=== PATIENT | female | born 1980 | race Caucasian/White ===

== ENCOUNTER 2019-03-02 17:02 | Inpatient (IN) | payer OTHER ==
[~2019-03-02] VITALS: Ht 165.1 cm; Wt 77.1 kg
[2019-03-02] MEDS ORDERED: LACTATED RINGERS 1,000 ML IV SCH (18:36)
[2019-03-02] MEDS ORDERED: NALBUPHINE 10 MG/ML AMP IVP PRN (18:40)
[2019-03-02] MEDS ORDERED: CARBOPROST 250 MCG/ML AMP IM PRN (18:40)
[2019-03-02] MEDS ORDERED: MISOPROSTOL 200 MCG TAB VG SCH (19:00)
[2019-03-02 19:26] LABS: BASOPHILS % (AUTO) 0.4 % (0.0-2.0); EOSINOPHILS # (AUTO) 0.1 K/uL (0-0.4); EOSINOPHILS % (AUTO) 0.8 % (0.0-4.0); HEMATOCRIT 42.3 % (36-48); HEMOGLOBIN 14.3 g/dL (12.0-16.0); LYMPHOCYTES # (AUTO) 2.5 K/uL (2.5-16.5); LYMPHOCYTES % (AUTO) 22.4 % (20.5-51.1); MEAN CORPUSCULAR HEMOGLOBIN 33 pg (27-31); MEAN CORPUSCULAR HGB CONC 34 g/dL (33-37); MEAN CORPUSCULAR VOLUME 97.8 fL (80-94); MONOCYTES # (AUTO) 0.9 K/uL (0.8-1.0); MONOCYTES % (AUTO) 7.7 % (1.7-9.3); NEUTROPHILS # (AUTO) 7.7 K/uL (1.8-7.7); NEUTROPHILS % (AUTO) 68.7 % (42.2-75.2); PLATELET COUNT (AUTO) 184 K/uL (140-450); RED BLOOD CELL COUNT(AUTO) 4.33 MIL/uL (4.20-5.40); RED CELL DISTRIBUTION WIDTH 14.4 % (11.6-13.7); WHITE BLOOD COUNT (AUTO) 11.3 K/uL (4.8-10.8)
[2019-03-02 19:54] LABS: ALBUMIN 2.8 g/dL (3.4-5.0); ANION GAP 16.2 (8-16); CARBON DIOXIDE 22.5 mmol/L (21-32); CREATININE 0.6 mg/dL (0.6-1.3); POTASSIUM 3.7 mmol/L (3.5-5.1); TOTAL BILIRUBIN 0.4 mg/dL (0.0-1.0)
[2019-03-02 20:14] LABS: APPEARANCE,URINE CLEAR (CLEAR); BILIRUBIN,URINE NEGATIVE (NEGATIVE); BLOOD, URINE NEGATIVE (NEGATIVE); COLOR,URINE YELLOW (YELLOW); LEUKOCYTE ESTERASE ,URINE 2+ (NEGATIVE); NITRITE, URINE NEGATIVE (NEGATIVE); UGLUCOSE NEGATIVE (NEGATIVE)
[2019-03-02] MEDS ORDERED: MISOPROSTOL 25 MCG TAB ONE (20:25)
[2019-03-02 21:07] LABS: RBC,URINE NONE SEEN /HPF (0-5)
[2019-03-03] MEDS ORDERED: NALBUPHINE 10 MG/ML AMP ONE (00:16)
[2019-03-03] MEDS ORDERED: HYDROcodone/APAP 5/325 MG 1 TAB TAB PO PRN (01:35)
[2019-03-03] MEDS ORDERED: OXYTOCIN 10 UNITS/ML VIAL IM PRN (01:35)
[2019-03-03] MEDS ORDERED: METHYLERGONOVINE 0.2 MG/ML AMP IM PRN (01:35)
[2019-03-03] MEDS ORDERED: SODIUM PHOSPHATE 118 ML ENEM RC PRN (01:35)
[2019-03-03] MEDS ORDERED: MEASLES, MUMPS, AND RUBELLA 1 VIAL SQVAC PRN (01:35)
[2019-03-03] MEDS ORDERED: BENZOCAINE/MENTHOL 20%-0.5% 60 GM CAN TP PRN (01:35)
[2019-03-03] MEDS ORDERED: METHYLERGONOVINE 0.2 MG TAB PO PRN (01:35)
[2019-03-03] MEDS ORDERED: TEMAZEPAM 15 MG CAP PO PRN (01:35)
[2019-03-03] MEDS ORDERED: BISACODYL 10 MG SUPP RC PRN (01:35)
[2019-03-03] MEDS: CALCIUM POLYCARBOPHIL 625 MG TAB PO SCH ×2 (09:37→21:00)
[2019-03-03] MEDS ORDERED: DOCUSATE SOD/SENNA 50/8.6 MG 1 TAB PO SCH (21:00)
[2019-03-03] MEDS ORDERED: BISACODYL 5 MG TABEC PO SCH (21:00)
[2019-03-04] MEDS ORDERED: INFLUENZA VACCINE QUAD 0.5 ML SYR IMVAC PRN (06:00)
[2019-03-04 08:55] LABS: HEMATOCRIT 41.4 % (36-48); HEMOGLOBIN 13.6 g/dL (12.0-16.0)
[2019-03-04] MEDS ORDERED: DOCUSATE SOD/SENNA 50/8.6 MG 1 TAB PO SCH (21:00)
== END 2019-03-05 15:04 | disposition home or self-care (01) | DRG 560 ==
LOC: MLD 17:02 → MFCC 03-03 04:28
PROVIDERS: ADMIT Obstetrics & Gynecology; ATTEND Obstetrics & Gynecology
PROC: 10E0XZZ Delivery of Products of Conception, External Approach (ICD-10-PCS; principal; 2019-03-03)
PROC: 10907ZC Drainage of Amniotic Fluid, Therapeutic from Products of Conception, Via Natural or Artificial Opening (ICD-10-PCS; 2019-03-03)
PROC: 3E033VJ Introduction of Other Hormone into Peripheral Vein, Percutaneous Approach (ICD-10-PCS; 2019-03-03)
PROC: 3E0P7VZ Introduction of Hormone into Female Reproductive, Via Natural or Artificial Opening (ICD-10-PCS; 2019-03-03)
PROC: 3E0234Z Introduction of Serum, Toxoid and Vaccine into Muscle, Percutaneous Approach (ICD-10-PCS; 2019-03-03)
PROC: 3E0134Z Introduction of Serum, Toxoid and Vaccine into Subcutaneous Tissue, Percutaneous Approach (ICD-10-PCS; 2019-03-03)
DX: O48.0 Post-term pregnancy (principal); O62.3 Precipitate labor; Z3A.40 40 weeks gestation of pregnancy; Z37.0 Single live birth; Z23 Encounter for immunization
CPT/HCPCS: 36415; 59200; 59409; 80053; 81001; 85018; 85025; 86592; 86886; 86900; 86901; 87086; J2300; J7120